=== PATIENT | male | born 1960 | race American Indian/Alaskan Native ===

== ENCOUNTER 2022-06-03 19:03 | Inpatient (IN) | payer SELFPAY ==
[2022-06-03] MEDS ORDERED: ALTEPLASE 100 MG INJ KIT IV ONE ×2 (20:04)
[2022-06-03] MEDS ORDERED: SODIUM CHLORIDE 0.9% 50 ML IVPB IV ONE (20:04)
--- NOTE | 2022-06-03 20:16 | Consultation ---
History of Present Illness Consult date: 06/03/22 History of present illness: [facility] Consult Note # Demographics Consult Type: Acute Stroke Level 1 (0-4.5 hrs) Patient Location: Emergency Room First Name: Farzad Last Name: Andrei Date of : 1960 Age: 61 Gender: Male Facility: [facility] [place] Time of Initial Page ( Time): 06/03/2022, 19:41 Time of Return Call ( Time): 06/03/2022, 19:42 # HPI Chief Complaint: weakness (focal) Handedness: Right History: Per ER staff, patient with right-sided weakness starting at 5:30pm. Last Known Normal: I have collected independent history specific to time last normal or last known well. We have collaborated with the provider and at this time, we have the most current timeline with the information that is available. 5:30pm Duration: constant hours Possible Thrombolytic candidate: not on warfarin or NOACs no intracranial hemorrhage history no recent major surgery Associated Symptoms: no headache # Scores Time of exam and NIHSS (): 06/03/2022, 19:52 Level of Consciousness 1a: [0] = Alert; keenly responsive LOC Questions 1b: [0] = Answers both questions correctly LOC Commands 1c: [0] = Performs both tasks correctly Best Gaze 2: [0] = Normal Visual 3: [0] = No visual loss Facial Palsy 4: [0] = Normal symmetrical movements Motor Arm Left 5a: [0] = No drift Motor Arm Right 5b: [0] = No drift Motor Leg Left 6a: [0] = No drift Motor Leg Right 6b: [0] = No drift Limb Ataxia 7: [0] = Absent Sensory 8: [0] = Normal Best Language 9: [0] = No aphasia Dysarthria 10: [0] = Normal Extinction and Inattention 11: [0] = No abnormality NIHSS Total: 0 # Exam SBP: 229 DBP: 132 Mental Status: awake alert and oriented x 3 follows commands Language: normal speech Motor: Distal right hand weakness - cannot make fist # ROS Pulmonary: no shortness of breath Cardiovascular: no chest pain # PMH-FH-SH Past Medical History: stroke Social History: non-smoker Medications: denies Allergies: NKDA # Data Glucose: [address] personally read by me ( Time): 06/03/2022, 19:[address]: no bleed preliminarily reviewed by me, please refer to radiology read for official reading # Assessment Impression: Ischemic Stroke (Acute) # Plan Thrombolytic/Intervention: IV thrombolytic and possible IA candidate Thrombolytic Dosing: IV alteplase 0.9 mg/kg, max dose 90 mg; 10% of dose given over 1 minute IVP, remaining 90% given as infusion over 1 hour Possible IA Candidate: CTA pending Time IV Thrombolytic Recommended ( Time): 06/03/2022, 20:03 Labs: CBC comprehensive metabolic panel ESR hemoglobin A1c lipid panel troponin TSH urine drug screen ua Imaging: (urgency: STAT): CT Angiogram Head and CT Angiogram Neck AND call back with results if abnormal Imaging: (urgency: routine): MRI Brain without contrast Diagnostic Test: echo without bubble study Therapy/Evaluation: NPO until swallow evaluation PT/OT evaluation Medication: aspirin 81 mg daily start statin with goal of LDL < 70 DVT Prophylaxis: SCD chemical DVT prophylaxis Thrombolytic Administration Recommendations: I reviewed the risks/benefits/alternatives of IV thrombolytic therapy with the patient. They understand there is potential of life threatening hemorrhage from IV thrombolysis. I stated that I believe benefits outweighs risk. They wish to proceed with IV thrombolytic therapy. I have collected independent history specific to time last normal or last known well. We have collaborated with the ED provider and at this time, we have the most current timeline with the information that is available. BP goal< 180/105 for 24hrs post Thrombolytic administration Use Labetolol 10-20mg IV prn or Nicardipine gtt to maintain BP parameters No antiplatelets or anticoagulants for next 24 hrs unless indicated for emergent IA procedure or other life threatening situation symptoms deemed to be disabling, despite low NIHSS Given the current persistent symptoms & reported lack of exclusion conditions, the risks & benefits of thrombolysis were discussed with the patient. Alteplase is FDA-approved for treating acute ischemic strokes & patients generally do better with treatment than without. Distal right hand weakness Other: If patient has any neurological deterioration please call me back immediately telemetry monitoring I have discussed my recommendations with the referring provider Disposition: admit # Demographics First Name: Farzad Last Name: Andrei Facility: [facility] [place] Medications and Allergies Allergies Allergy/AdvReac Type Severity Reaction Status Date / Time No Known Allergies Allergy Unverified 06/03/22 19:30 Physical Examination - Vital Signs Vital Signs: Vital Signs Temp Pulse Resp BP Pulse Ox 99.1 F 82 18 229/132 100 06/03/22 19:23 06/03/22 19:23 06/03/22 19:23 06/03/22 19:23 06/03/22 19:23
--- NOTE | 2022-06-03 20:18 | Cat Scan Report ---
CT BRAIN: 06/03/2022 INDICATION / CLINICAL INFORMATION: Right arm numbness. COMPARISON: None available. FINDINGS: BRAIN/INTRACRANIAL STRUCTURES: Unenhanced CT images of the brain were obtained. No previous studies a re available here for comparison. There is no definite evidence of acute abnormality. Extensive chronic white matter hypoattenuation is present throughout the cerebral hemispheric white matter and cerebellum, consistent with chronic sma ll vessel ischemic change and lacunar infarcts. There is a more focal area of right parietal cortical and subcortical encephalomalacia, consistent with remote cortical ischemic injury. There is no evidence of hemorrhage or mass. There are no abnormal extra-axial fluid collections. Atherosclerotic vascular calcifications are present in the distal internal carotid arteries and verte bral arteries. EXTRACRANIAL STRUCTURES: Unremarkable. IMPRESSION: No acute abnormality. Extensive chronic changes as described above. All CT scans at this location are performed using dose reduction to ALARA by means of automated expos ure control. Signer Name: Kalpesh Li MD Signed: 06/03/2022 8:14 PM Workstation Name: [id number]
--- NOTE | 2022-06-03 20:21 | Emergency Department Report ---
HPI - General Chief Complaint: High BP Time Seen by Provider: 06/03/22 19:47 - HPI HPI: Room 1 The patient is a 61-year-old male present with a chief complaint of right-sided numbness. The patient states he was in his usual state of health at [address] when he suddenly came disoriented. Patient states he then developed numbness in his right upper extremity and weakness in his right director gift. Patient states he was unable to clench his fist and the symptoms have been persistent. Patient denies any other weakness or paresthesias. Patient denies dysarthria or dysphagia. ED Past Medical Hx - Past Medical History Hx Hypertension: Yes - Surgical History Past Surgical History?: No - Family History Family history: no significant - Social History Smoking Status: Never Smoker Substance Use Type: None ED Review of Systems ROS: Stated complaint: STROKE Other details as noted in HPI Constitutional: no symptoms reported Eyes: denies: eye pain ENT: denies: throat pain Respiratory: no symptoms reported Cardiovascular: denies: chest pain Endocrine: no symptoms reported Gastrointestinal: denies: abdominal pain Genitourinary: denies: dysuria Musculoskeletal: denies: back pain Neurological: weakness, paresthesias Physical Exam - Physical Exam Vital Signs: Vital Signs 06/03/22 19:23 Temperature 99.1 F Pulse Rate 82 Respiratory 18 Rate Blood Pressure 229/132 [Right] O2 Sat by Pulse 100 Oximetry Physical Exam: GENERAL: The patient is well-developed well-nourished male lying on stretcher not appearing to be in acute distress. [] HEENT: Normocephalic. Atraumatic. Extraocular motions are intact. Patient has moist mucous membranes. NECK: Supple. Trachea midline CHEST/LUNGS: Clear to auscultation. There is no respiratory distress noted. HEART/CARDIOVASCULAR: Regular. There is no tachycardia. There is no gallop rub or murmur. ABDOMEN: Abdomen is soft, nontender. Patient has normal bowel sounds. There is no abdominal distention. SKIN: There is no rash. There is no edema. There is no diaphoresis. NEURO: The patient is awake, alert, and oriented. The patient is cooperative. Cranial nerves II through XII grossly intact. 0+/5 director gift on the right, 5+/5 director gift on the left. Patient is able to hold either upper extremity at 45 degree angle for 10-second count without drift. Patient is able to hold either lower extremity at 30 degree angle for 5-second count without drift. Normal sensation to light touch bilaterally. The patient has normal speech. GCS 15. NIHSS=1 MUSCULOSKELETAL: There is no evidence of acute injury. ED Course Vital Signs 06/03/22 19:23 Temperature 99.1 F Pulse Rate 82 Respiratory 18 Rate Blood Pressure 229/132 [Right] O2 Sat by Pulse 100 Oximetry - Consultations Consultation #1: 06/03/22 20:06 Case discussed with [id number] recommend tPA 06/03/22 21:47 Tele-neurologist paged 06/03/22 21:53 CTA results discussed with neurologist-not amenable to intervention. Continue with plan to admit patient for further stroke work-up ED Medical Decision Making - Lab Data Result diagrams: 06/03/22 20:35 Laboratory Tests 06/03/22 06/03/22 06/03/22 20:35 20:35 Unknown WBC 5.4 RBC 4.40 Hgb 13.1 Hct 38.6 MCV 88 MCH 30 MCHC 34 RDW 13.9 Plt Count 158 Lymph % (Auto) 9.1 L [place] % (Auto) 4.4 Eos % (Auto) 2.6 Baso % (Auto) 2.4 H Lymph # (Auto) 0.5 L [place] # (Auto) 0.2 Eos # (Auto) 0.1 Baso # (Auto) 0.1 Seg Neutrophils % 81.5 H Seg Neutrophils # 4.4 PT 13.7 INR 0.95 APTT 32.0 Thrombin Time 17.7 Urine Color Straw Urine Turbidity Clear Specific [place] (Man) 1.010 Ur Protein (Man) Negative Ur Ketones (Man) Negative Ur Nitrite (Man) Negative Urine Bilirubin (Man) Negative Leukocyte Esterase (Man) Negative Urine WBC (Auto) < 1.0 Urine RBC (Auto) < 1.0 U Epithel Cells (Auto) < 1.0 Urine RBC (Manual) Negative - Radiology Data Radiology results: report reviewed (CT head, CTA brain, CTA neck), image reviewed (CT head, CTA brain, CTA neck) [facility] [address] [place] [address] Cat Scan Report Signed Patient: ROBERT RUSSELL MR#: [id number] 1 : 1960 Acct:[id number] Age/Sex: 61 / M ADM Date: 06/03/22 Loc: ED Attending Dr: Ordering Physician: DEVANTE SUTHERLAND MD Date of Service: 06/03/22 Procedure(s): CT head/brain wo con Accession Number(s): [id number] cc: DEVANTE SUTHERLAND MD CT BRAIN: 06/03/2022 INDICATION / CLINICAL INFORMATION: Right arm numbness. COMPARISON: None available. FINDINGS: BRAIN/INTRACRANIAL STRUCTURES: Unenhanced CT images of the brain were obtained. No previous studies are available here for comparison. There is no definite evidence of acute abnormality. Extensive chronic white matter hypoattenuation is present throughout the cerebral hemispheric white matter and cerebellum, consistent with chronic small vessel ischemic change and lacunar infarcts. There is a more focal area of right parietal cortical and subcortical encephalomalacia, consistent with remote cortical ischemic injury. There is no evidence of hemorrhage or mass. There are no abnormal extra-axial fluid collections. Atherosclerotic vascular calcifications are present in the distal internal carotid arteries and vertebral arteries. EXTRACRANIAL STRUCTURES: Unremarkable. IMPRESSION: No acute abnormality. Extensive chronic changes as described above. All CT scans at this location are performed using dose reduction to ALARA by means of automated exposure control. Signer Name: Kalpesh Li MD Signed: 06/03/2022 8:14 PM Workstation Name: [id number] Transcribed By: AO Dictated By: Kalpesh Li MD Electronically Authenticated By: Kalpesh Li MD Signed Date/Time: 06/03/222013 DD/ 07 TD/TT: [facility] [address] [place] [address] Cat Scan Report Signed Patient: ROBERT RUSSELL MR#: [id number] 1 : 1960 Acct:[id number] Age/Sex: 61 / M ADM Date: 06/03/22 Loc: ED Attending Dr: Ordering Physician: DEVANTE SUTHERLAND MD Date of Service: 06/03/22 Procedure(s): CT angio neck Accession Number(s): [id number] cc: DEVANTE SUTHERLAND MD CTA NECK WITH CONTRAST 06/03/2022 INDICATION / CLINICAL INFORMATION: Right upper extremity numbness 100ml of [id number]. COMPARISON: None. TECHNIQUE: Routine CTA of the neck is performed. 3-D/MIP reformats were postprocessed. Percentage stenosis is determined by direct quantitative measurements of diseased internal carotid artery diameter compared with normal distal internal carotid artery reference segments or by criteria similar to NASCET where applicable. All CT scans at this location are performed using CT dose reduction for ALARA by means of automated exposure control. CONTRAST: 100 ml of Omnipaque 350 FINDINGS: Carotid bifurcations: No evidence of carotid bifurcation stenosis Carotid arteries: No significant abnormality. Cervical vertebral arteries: No significant abnormality. Aortic arch: No significant abnormality. None. IMPRESSION: No significant abnormality. Signer Name: Kalpesh Li MD Signed: 06/03/2022 8:57 PM Workstation Name: [id number] Transcribed By: AO Dictated By: Kalpesh Li MD Electronically Authenticated By: Kalpesh Li MD Signed Date/Time: 06/03/222056 DD/ 54 TD/TT: [facility] [address] [place] [address] Cat Scan Report Signed Patient: ROBERT RUSSELL MR#: [id number] 1 : 1960 Acct:[id number] Age/Sex: 61 / M ADM Date: 06/03/22 Loc: ED Attending Dr: Ordering Physician: DEVANTE SUTHERLAND MD Date of Service: 06/03/22 Procedure(s): CT angio head Accession Number(s): [id number] cc: DEVANTE SUTHERLAND MD CTA HEAD WITH CONTRAST 06/03/2022 HISTORY: Right upper extremity numbness 100ml of [id number]. COMPARISON: None. TECHNIQUE: All CT scans at this location are performed using CT dose reduction for ALARA by means of automated exposure control.. 3-D/MIP reformats postprocessed. Percentage stenosis is determined by direct quantitative measurements of diseased internal carotid artery diameter compared with normal distal internal carotid artery reference segments or by criteria similar to NASCET where applicable. CONTRAST: 100 ml of Omnipaque 350 FINDINGS: CTA HEAD: Intracranial vertebral arteries: Prominent atherosclerotic change in the distal right vertebral artery, which may be highly stenotic or completely occluded just above the skull base, with retrograde flow from the vertebrobasilar junction. 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 Reconstitution distally, with Basilar artery: As above Posterior cerebral arteries: Moderate atherosclerotic irregularity without occlusion. Intracranial internal carotid arteries: No significant abnormality. Anterior cerebral arteries: Moderate atherosclerotic irregularity without occlusion. Middle cerebral arteries: Moderate atherosclerotic irregularity without occlusion. Dural venous sinuses:Not optimally opacified. No significant abnormality. Additional findings: None. IMPRESSION: 1. Intracranial atherosclerotic changes as detailed above. Signer Name: Kalpesh Li MD Signed: 06/03/2022 9:10 PM Workstation Name: [id number] Transcribed By: AO Dictated By: Kalpesh Li MD Electronically Authenticated By: Kalpesh Li MD Signed Date/Time: 06/03/222109 DD/ 56 TD/TT: - Differential Diagnosis CVA Critical care attestation.: If time is entered above; I have spent that time in minutes in the direct care of this critically ill patient, excluding procedure time. ED Disposition Clinical Impression: CVA (cerebral vascular accident) Disposition: ADMITTED INPATIENT Is pt being admited?: Yes Does the pt Need Aspirin: No Condition: Serious Time of Disposition: 22:10 (Care transferred to hospitalist (Dr. Payne))
[2022-06-03 20:58] LABS: Basophils # (Auto) 0.1 K/mm3 (0.0-0.1); Basophils % (Auto) 2.4 % (0.0-1.8); Eosinophils # (Auto) 0.1 K/mm3 (0.0-0.4); Eosinophils % (Auto) 2.6 % (0.0-4.3); Hematocrit 38.6 % (35.5-45.6); Hemoglobin 13.1 gm/dl (11.8-15.2); Lymphocytes # (Auto) 0.5 K/mm3 (1.2-5.4); Lymphocytes % (Auto) 9.1 % (13.4-35.0); Mean Corpuscular HGB Conc 34 % (32-34); Mean Corpuscular Volume 88 fl (84-94); Monocytes # (Auto) 0.2 K/mm3 (0.0-0.8); Monocytes % (Auto) 4.4 % (0.0-7.3); Platelet Count 158 K/mm3 (140-440); Red Cell Distribution Width 13.9 % (13.2-15.2)
--- NOTE | 2022-06-03 21:02 | Cat Scan Report ---
CTA NECK WITH CONTRAST 06/03/2022 INDICATION / CLINICAL INFORMATION: Right upper extremity numbness 100ml of [id number]. COMPARISON: None. TECHNIQUE: Routine CTA of the neck is performed. 3-D/MIP reformats were postprocessed. Percentage st enosis is determined by direct quantitative measurements of diseased internal carotid artery diameter compared with normal distal internal carotid artery reference segments or by criteria similar to CET where applicable. All CT scans at this location are performed using CT dose reduction for ALARA b y means of automated exposure control. CONTRAST: 100 ml of Omnipaque 350 FINDINGS: Carotid bifurcations: No evidence of carotid bifurcation stenosis Carotid arteries: No significant abnormality. Cervical vertebral arteries: No significant abnormality. Aortic arch: No significant abnormality. None. IMPRESSION: No significant abnormality. Signer Name: Kalpesh Li MD Signed: 06/03/2022 8:57 PM Workstation Name: [id number]
[2022-06-03 21:07] LABS: INR 0.95 (0.87-1.13)
[2022-06-03 21:08] LABS: Thrombin Time 17.7 Sec. (15.1-19.6)
[2022-06-03 21:08] LABS: Color,Urine Straw (Yellow); RBC,Urine < 1.0 /HPF (0.0-6.0); WBC,Urine < 1.0 /HPF (0.0-6.0)
[2022-06-03] MEDS ORDERED: niCARdipine DRIP 40 MG/200 ML BAG ONE (21:13)
[2022-06-03] MEDS ORDERED: hydrALAZINE 20 MG/1 ML INJ ONE (21:14)
--- NOTE | 2022-06-03 21:15 | Cat Scan Report ---
CTA HEAD WITH CONTRAST 06/03/2022 HISTORY: Right upper extremity numbness 100ml of [id number]. COMPARISON: None. TECHNIQUE: All CT scans at this location are performed using CT dose reduction for ALARA by means of automated exposure control.. 3-D/MIP reformats postprocessed. Percentage stenosis is determined by d irect quantitative measurements of diseased internal carotid artery diameter compared with normal dis mauricio internal carotid artery reference segments or by criteria similar to NASCET where applicable. CONTRAST: 100 ml of Omnipaque 350 FINDINGS: CTA HEAD: Intracranial vertebral arteries: Prominent atherosclerotic change in the distal right vertebral arter y, which may be highly stenotic or completely occluded just above the skull base, with retrograde jacque w from the vertebrobasilar junction. The basilar artery itself is probably atherosclerotic and appear s to be occluded in its mid point, from [place] of [place] collaterals. Reconstitution distally, with Basilar artery: As above Posterior cerebral arteries: Moderate atherosclerotic irregularity without occlusion. Intracranial internal carotid arteries: No significant abnormality. Anterior cerebral arteries: Moderate atherosclerotic irregularity without occlusion. Middle cerebral arteries: Moderate atherosclerotic irregularity without occlusion. Dural venous sinuses:Not optimally opacified. No significant abnormality. Additional findings: None. IMPRESSION: 1. Intracranial atherosclerotic changes as detailed above. Signer Name: Kalpesh Li MD Signed: 06/03/2022 9:10 PM Workstation Name: [employer] [id number]
[2022-06-03] MEDS ORDERED: hydrALAZINE 20 MG/1 ML INJ IV ONE (21:22)
[2022-06-03] MEDS ORDERED: niCARdipine DRIP 40 MG/200 ML BAG IV ONE (21:42)
[2022-06-03] MEDS ORDERED: niCARdipine 50 MG in SODIUM CHLORIDE 0.9% 250ML 230 ML IV SCH (22:00)
[2022-06-03 22:25] LABS: BUN/Creatinine Ratio 11; Blood Urea Nitrogen 16 mg/dL (9-20); Calcium 8.8 mg/dL (8.4-10.2); Hemolysis Index 41
[2022-06-03] MEDS ORDERED: SODIUM CHLORIDE 0.9% 1000 ML 1,000 ML IV SCH (23:45)
[2022-06-03] MEDS ORDERED: ONDANSETRON 4 MG/2 ML INJ IV PRN (23:57)
[2022-06-03] MEDS ORDERED: MORPHINE 2 MG/1 ML INJ IV PRN (23:57)
[2022-06-03] MEDS ORDERED: ACETAMINOPHEN 325 MG TAB PO PRN (23:57)
[2022-06-03] MEDS ORDERED: MORPHINE 4 MG/1 ML INJ IV PRN (23:57)
[2022-06-03] MEDS ORDERED: ALBUTEROL 2.5 MG/3 ML NEBU IH PRN (23:57)
--- NOTE | 2022-06-04 00:07 | History and Physical Report ---
History of Present Illness Date of examination: 06/04/22 Date of admission: 06/04/22 Chief complaint: High blood pressure Right upper extremity weakness numbness History of present illness: 61-year-old male with history of hypertension was brought to the hospital be cause of right-sided numbness. The patient states he was in his usual state of health at 1730 watching television when he suddenly came disoriented. Patient states he then developed numbness in his right upper extremity and weakness in his right development scientist. Patient states he was unable to clench his fist and the symptoms have been persistent. Patient denies any other weakness or paresthesias. Patient denies dysarthria or dysphagia. Initial CT scan of the head shows no acute intracranial abnormality. Subsequently Case was discussed with on-call telemetry neurologist who recommends tPA. We are going to admit the patient we will put the patient on CVA pathway will consult neurology as well as critical care for evaluation Past History Past Medical History: hypertension Past Surgical History: No surgical history Social history: no significant social history Family history: hypertension Medications and Allergies Allergies Allergy/AdvReac Type Severity Reaction Status Date / Time No Known Allergies Allergy Unverified 06/03/22 19:30 Active Meds: Active Medications Nicardipine HCl 50 mg/ Sodium (Chloride) 250 mls @ 25 mls/hr IV TITR OWEN; Protocol Nicardipine/Sodium Chloride (Cardene Drip 40 Mg/200 Ml) 40 mg in 200 mls @ 25 mls/hr IV ONCE ONE; Protocol Stop: 06/04/22 05:41 Last Admin: 06/03/22 22:02 Dose: 5 mg/hr, 25 mls/hr Review of Systems All systems: negative Constitutional: other (numbness in his right upper extremity and weakness in his right development scientist. ) Exam - Constitutional Vitals: Temp Pulse Resp BP Pulse Ox 99.1 F 91 H 16 174/102 99 06/03/22 19:23 06/03/22 23:50 06/03/22 23:50 06/03/22 23:50 06/03/22 23:50 General appearance: Present: no acute distress, well-nourished - EENT Eyes: Present: PERRL ENT: hearing intact, clear oral mucosa - Neck Neck: Present: supple, normal ROM - Respiratory Respiratory effort: normal Respiratory: bilateral: CTA - Cardiovascular Heart Sounds: Present: S1 & S2. Absent: rub, click - Extremities Extremities: pulses symmetrical, No edema Peripheral Pulses: within normal limits - Abdominal General gastrointestinal: Present: soft, non-tender, non-distended, normal bowel sounds Male genitourinary: Present: normal - Integumentary Integumentary: Present: clear, warm, dry - Musculoskeletal Musculoskeletal: gait normal, strength equal bilaterally - Psychiatric Psychiatric: appropriate mood/affect, intact judgment & insight - Neurologic Neurologic: CNII-XII intact, moves all extremities, other (numbness in his right upper extremity and weakness in his right development scientist. ) HEART Score - HEART Score Troponin: Troponin T < 0.010 ng/mL (0.00-0.029) 06/03/22 20:35 Results - Labs CBC & Chem 7: 06/03/22 20:35 06/03/22 20:35 Labs: Laboratory Last Values WBC 5.4 K/mm3 (4.5-11.0) 06/03/22 20:35 RBC 4.40 M/mm3 (3.65-5.03) 06/03/22 20:35 Hgb 13.1 gm/dl (11.8-15.2) 06/03/22 20:35 Hct 38.6 % (35.5-45.6) 06/03/22 20:35 MCV 88 fl (84-94) 06/03/22 20:35 MCH 30 pg (28-32) 06/03/22 20:35 MCHC 34 % (32-34) 06/03/22 20:35 RDW 13.9 % (13.2-15.2) 06/03/22 20:35 Plt Count 158 K/mm3 (140-440) 06/03/22 20:35 Lymph % (Auto) 9.1 % (13.4-35.0) L 06/03/22 20:35 Cassia % (Auto) 4.4 % (0.0-7.3) 06/03/22 20:35 Eos % (Auto) 2.6 % (0.0-4.3) 06/03/22 20:35 Baso % (Auto) 2.4 % (0.0-1.8) H 06/03/22 20:35 Lymph # (Auto) 0.5 K/mm3 (1.2-5.4) L 06/03/22 20:35 Cassia # (Auto) 0.2 K/mm3 (0.0-0.8) 06/03/22 20:35 Eos # (Auto) 0.1 K/mm3 (0.0-0.4) 06/03/22 20:35 Baso # (Auto) 0.1 K/mm3 (0.0-0.1) 06/03/22 20:35 Seg Neutrophils % 81.5 % (40.0-70.0) H 06/03/22 20:35 Seg Neutrophils # 4.4 K/mm3 (1.8-7.7) 06/03/22 20:35 PT 13.7 Sec. (12.2-14.9) 06/03/22 20:35 INR 0.95 (0.87-1.13) 06/03/22 20:35 APTT 32.0 Sec. (24.2-36.6) 06/03/22 20:35 Thrombin Time 17.7 Sec. (15.1-19.6) 06/03/22 20:35 Sodium 136 mmol/L (137-145) L 06/03/22 20:35 Potassium 3.3 mmol/L (3.6-5.0) L 06/03/22 20:35 Chloride 97.1 mmol/L (98-107) L 06/03/22 20:35 Carbon Dioxide 27 mmol/L (22-30) 06/03/22 20:35 Anion Gap 15 mmol/L 06/03/22 20:35 BUN 16 mg/dL (9-20) 06/03/22 20:35 Creatinine 1.5 mg/dL (0.8-1.3) H 06/03/22 20:35 Estimated GFR 58 ml/min 06/03/22 20:35 BUN/Creatinine Ratio 11 % 06/03/22 20:35 Glucose 111 mg/dL (75-100) H 06/03/22 20:35 Calcium 8.8 mg/dL (8.4-10.2) 06/03/22 20:35 Troponin T < 0.010 ng/mL (0.00-0.029) 06/03/22 20:35 Urine Color Straw (Yellow) 06/03/22 Unknown Urine Turbidity Clear (Clear) 06/03/22 Unknown Specific [place] (Man) 1.010 (1.003-1.030) 06/03/22 Unknown Ur Protein (Man) Negative mg/dL (Negative) 06/03/22 Unknown Ur Ketones (Man) Negative (Negative) 06/03/22 Unknown Ur Nitrite (Man) Negative (Negative) 06/03/22 Unknown Urine Bilirubin (Man) Negative (Negative) 06/03/22 Unknown Leukocyte Esterase (Man) Negative (Negative) 06/03/22 Unknown Urine WBC (Auto) < 1.0 /HPF (0.0-6.0) 06/03/22 Unknown Urine RBC (Auto) < 1.0 /HPF (0.0-6.0) 06/03/22 Unknown U Epithel Cells (Auto) < 1.0 /HPF (0-13.0) 06/03/22 Unknown Urine RBC (Manual) Negative (Negative) 06/03/22 Unknown - Imaging and Cardiology CT Scan - head: report reviewed Assessment and Plan VTE prophylaxis?: Mechanical Plan of care discussed with patient/family: Yes - Patient Problems (1) CVA (cerebral vascular accident) Current Visit: Yes Status: Acute Plan to address problem: Admit the patient to the ICU overnight. NPO. Normal saline at the rate of 100 cc/h. Patient is a status post tPA. We put the patient on CVA pathway. PT OT speech evaluation. MRI of the brain with and without contrast. Echocardiogram. Neurology evaluation. Critical care evaluation (2) Hypertension Current Visit: Yes Status: Acute Plan to address problem: We put the patient on nicardipine drip. We will monitor the patient closely. We continue the home medication. Echocardiogram (3) Right upper extremity numbness Current Visit: Yes Status: Acute Plan to address problem: NPO. Normal saline at the rate of 100 cc/h. Patient is a status post tPA. We put the patient on CVA pathway. PT OT speech evaluation. MRI of the brain with and without contrast. Echocardiogram. Neurology evaluation. Critical care evaluation (4) DVT prophylaxis Current Visit: Yes Status: Acute Plan to address problem: SCD for DVT prophylaxis because patient is status post tPA. Pepcid 20 mg IV every 12 hours for GI prophylaxis. Patient is a full code
[2022-06-04] MEDS: IPRATROPIUM/ALBUTEROL SULFATE 3 ML AMPUL.NEB IH SCH ×2 (02:40→07:56)
[2022-06-04 04:52] LABS: Basophils % (Auto) 0.1 % (0.0-1.8); Eosinophils % (Auto) 0.4 % (0.0-4.3); Hematocrit 40.1 % (35.5-45.6); Hemoglobin 13.6 gm/dl (11.8-15.2); Lymphocytes # (Auto) 0.9 K/mm3 (1.2-5.4); Mean Corpuscular HGB Conc 34 % (32-34); Mean Corpuscular Volume 88 fl (84-94); Monocytes # (Auto) 0.3 K/mm3 (0.0-0.8); Monocytes % (Auto) 4.6 % (0.0-7.3); Platelet Count 150 K/mm3 (140-440); Red Blood Count 4.56 M/mm3 (3.65-5.03); Red Cell Distribution Width 13.8 % (13.2-15.2)
[2022-06-04 05:17] LABS: BUN/Creatinine Ratio 12; Blood Urea Nitrogen 13 mg/dL (9-20); Calcium 8.9 mg/dL (8.4-10.2); Chol/HDL Ratio 3.65 %; HDL Cholesterol 43 mg/dL (40-59); Hemolysis Index 10; LDL Cholesterol,Direct 107 mg/dL (50-130)
[2022-06-04] MEDS ORDERED: hydroCHLOROthiazide 25 MG TAB PO SCH (10:00)
[2022-06-04] MEDS ORDERED: FAMOTIDINE 20 MG/2 ML INJ IV SCH (10:00)
[2022-06-04] MEDS: POTASSIUM CHLORIDE ER 20 MEQ TAB PO SCH ×2 (10:01→14:40)
[2022-06-04] MEDS: FAMOTIDINE 20 MG TAB PO SCH (10:02)
--- NOTE | 2022-06-04 10:19 | Consultation ---
History of Present Illness Consult date: 06/04/22 Reason for Consult: CVA Chief complaint: Right hand weakness History of present illness: 61 yo right-handed male with htn, ?afib, who presents with a LKNormal time of 17:30 yesterday when he noticed acute onset of right hand weakness along with difficulty getting all his words out. Upon ED arrival, evaluated by tele neurologist and patient was administered IV t-PA. He notes no change in his symptoms. Notes there are times when he feels like his heart is racing. 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 Notes he may have been told that he has atrial fiibrillation. Denies any covid-19 symptoms recently. Past History Past Medical History: hypertension Past Surgical History: No surgical history Social history: no significant social history Family history: hypertension Medications and Allergies Allergies Allergy/AdvReac Type Severity Reaction Status Date / Time No Known Allergies Allergy Unverified 06/03/22 19:30 Home Medications Medication Instructions Recorded Confirmed Last Taken Type No Known Home Medications [No 06/04/22 06/04/22 Unknown History Reported Home Medications] Active Meds: Active Medications Acetaminophen (Acetaminophen 325 Mg Tab) 650 mg PO Q4H PRN PRN Reason: Pain MILD(1-3)/Fever >100.5/[place] Albuterol (Albuterol 2.5 Mg/3 Ml Nebu) 2.5 mg IH Q3HRT PRN PRN Reason: Shortness Of Breath Albuterol/Ipratropium (Ipratropium/Albuterol Sulfate 3 Ml Ampul.Neb) 1 ampul IH Q6HRT [facility] Last Admin: 06/04/22 07:56 Dose: 1 ampul Atorvastatin Calcium (Atorvastatin 40 Mg Tab) 80 mg PO QHS OWEN Famotidine (Famotidine 20 Mg Tab) 20 mg PO QDAY [facility] Last Admin: 06/04/22 10:02 Dose: 20 mg Hydrochlorothiazide (Hydrochlorothiazide 25 Mg Tab) 25 mg PO QDAY [facility] Last Admin: 06/04/22 10:01 Dose: 25 mg Nicardipine HCl 50 mg/ Sodium (Chloride) 250 mls @ 25 mls/hr IV TITR OWEN; Protocol Last Titration: 06/04/22 08:50 Dose: 7.5 mg/hr, 37.5 mls/hr Morphine Sulfate (Morphine 2 Mg/1 Ml Inj) 2 mg IV Q4H PRN PRN Reason: Pain, Moderate (4-6) Morphine Sulfate (Morphine 4 Mg/1 Ml Inj) 4 mg IV Q4H PRN PRN Reason: Pain , Severe (7-10) Ondansetron HCl (Ondansetron 4 Mg/2 Ml Inj) 4 mg IV Q8H PRN PRN Reason: Nausea And Vomiting Potassium Chloride (Potassium Chloride Er 20 Meq Tab) 40 meq PO Q4HR OWEN Stop: 06/04/22 14:01 Last Admin: 06/04/22 10:01 Dose: 40 meq Sodium Chloride (Sodium Chloride 0.9% 10 Ml Flush Syringe) 10 ml IV BID OWEN Last Admin: 06/04/22 10:02 Dose: 10 ml Sodium Chloride (Sodium Chloride 0.9% 10 Ml Flush Syringe) 10 ml IV PRN PRN PRN Reason: LINE FLUSH Review of Systems All systems: negative (as per hpi;) Physical Examination - Vital Signs Vital Signs: Vital Signs Temp Pulse Resp BP Pulse Ox 99.1 F 82 18 229/132 100 06/03/22 19:23 06/03/22 19:23 06/03/22 19:23 06/03/22 19:23 06/03/22 19:23 - Physical Exam Narrative exam: Gen: nad, well-nourished; Head: normocephalic; Eyes: no gaze deviation; no ptosis; ENT: normal vocalization; CVS: warm and well-perfused; Pulm: no respiratory distress; GI: appears non-distended; Ext: no cyanosis appreciated at distal extremities; Skin: no acute rash at distal extremities; Heme: no pathologic ecchymosis appreciated at distal extremities; Neuro: alert, oriented to name, age, month, year, surroundings, no dysarthria, no aphasia, CN 2 - PERRL, visual holt grossly intact, CN 3, 4, 6 - EOMI, CN 5 - facial sensation symmetric to light touch, CN 7 - facial movement symmetric, CN 8 - hearing grossly intact, CN 9, 10 - uvula midline, CN 11 symmetric shoulder movement, CN 12 - tongue midline; Motor - at least 4/5 at all exts; Sensory - light touch symmetric, Cerebellar - fnf /hts intact, Gait - deferred secondary to fall risk; NIHSS (1a.) Level of Consciousness:0 (1b.) LOC Questions:0 (1c.) LOC Commands:0 (2.) Best Gaze:0 (3.) Visual:0 (4.) Facial Palsy:0 (5a.) Motor Arm, Left:0 (5b.) Motor Arm, Right:1 (6a.) Motor Leg, Left:0 (6b.) Motor Leg, Right0: (7.) Limb Ataxia:0 (8.) Sensory:0 (9.) Best Language:1 (10.) Dysarthria:0 (11.) Extinction and Inattention:0 NIHSS Total Score:2 Results - Laboratory Findings CBC and BMP: 06/04/22 04:15 06/04/22 04:15 Abnormal Lab Findings: Abnormal Labs 06/03/22 06/03/22 06/04/22 20:35 20:35 04:15 Lymph % (Auto) 9.1 L 13.0 L Baso % (Auto) 2.4 H Lymph # (Auto) 0.5 L 0.9 L Seg Neutrophils % 81.5 H 81.9 H Sodium 136 L Potassium 3.3 L Chloride 97.1 L Creatinine 1.5 H Glucose 111 H 06/04/22 04:15 Lymph % (Auto) Baso % (Auto) Lymph # (Auto) Seg Neutrophils % Sodium Potassium 3.1 L Chloride Creatinine Glucose 112 H Assessment and Plan 61 yo right-handed male with htn, ?afib, who presents with a LKNormal time of 17:30 yesterday when he noticed acute onset of right hand weakness along with difficulty getting all his words out. Received IV t-PA in the ED. 1. 1. Acute Ischemic Stroke (partial left mca; ?cardioembolic): post t-PA protocol; if [address] reveals no acute ich, initiateASA 325 mg PO qday, MRI Brain w/ wo contrast, TTEcho (if normal, recommend johanna and loop recorder unless hx of paroxysmal afib is verified, confirm LDL/TSH/Covid-19/UDS, telemetry, NIHSS q1 hours per post-tPA protocol; SBP goal 160 to 180 mmHg and DBP 80 to 105 mmHg for now. Statin therapy for a goal LDL of 70, when patient passes swallow evaluation. PT/OT/ST/Swallow evaluation. Long-term risk-factor modification, including a strict diet/exercise regimen for secondary stroke prophylaxis. Stroke education prior to discharge. Followup with Stroke Neurology in 4-6 weeks. 2. Hypertension - goal SBP 160-180 mmHg and DBP 80-105 mmHg for now. 3. Paroxysmal AFib - pt notes possible hx; needs to be verified with his hairspring truer; if verified, long-term anticoagulation for secondary stroke prophylaxis will be needed, if no contraindication(s). 4. Acute Expressive Aphasia - st / swallow evaluation/monitoring. 6. Acute Right Arm / Hand Weakness - pt/ot evaluation/monitoring. Oleksandr Abdalla MD Neurology [id number]
[2022-06-04] MEDS ORDERED: amLODIPine 5 MG TAB PO SCH (11:00)
--- NOTE | 2022-06-04 11:17 | Consultation ---
History of Present Illness - Reason for Consult Consult date: 06/04/22 S/p TPA - History of Present Illness 61 y/o male presented with acute right hand weakness. Deemed to be a candidate for TPA so given yesterday. Transfer to ICU for q1 hour neuro checks. Still with residual right hand weakness. BP remains elevated and required cardene drip. Not on any home meds that we can find. No chest pain, no current shortness of breath. Past History Past Medical History: hypertension Past Surgical History: No surgical history Social history: no significant social history Family history: hypertension Medications and Allergies Allergies Allergy/AdvReac Type Severity Reaction Status Date / Time No Known Allergies Allergy Unverified 06/03/22 19:30 Home Medications Medication Instructions Recorded Confirmed Last Taken Type No Known Home Medications [No 06/04/22 06/04/22 Unknown History Reported Home Medications] Active Meds: Active Medications Acetaminophen (Acetaminophen 325 Mg Tab) 650 mg PO Q4H PRN PRN Reason: Pain MILD(1-3)/Fever >100.5/[place] Albuterol (Albuterol 2.5 Mg/3 Ml Nebu) 2.5 mg IH Q3HRT PRN PRN Reason: Shortness Of Breath Albuterol/Ipratropium (Ipratropium/Albuterol Sulfate 3 Ml Ampul.Neb) 1 ampul IH Q6HRT [facility] Last Admin: 06/04/22 07:56 Dose: 1 ampul Amlodipine Besylate (Amlodipine 5 Mg Tab) 5 mg PO QDAY [facility] Last Admin: 06/04/22 10:38 Dose: 5 mg Atorvastatin Calcium (Atorvastatin 40 Mg Tab) 80 mg PO QHS [facility] Famotidine (Famotidine 20 Mg Tab) 20 mg PO QDAY [facility] Last Admin: 06/04/22 10:02 Dose: 20 mg Hydrochlorothiazide (Hydrochlorothiazide 25 Mg Tab) 25 mg PO QDAY [facility] Last Admin: 06/04/22 10:01 Dose: 25 mg Nicardipine HCl 50 mg/ Sodium (Chloride) 250 mls @ 25 mls/hr IV TITR [facility]; Protocol Last Titration: 06/04/22 10:40 Dose: 5 mg/hr, 25 mls/hr Morphine Sulfate (Morphine 2 Mg/1 Ml Inj) 2 mg IV Q4H PRN PRN Reason: Pain, Moderate (4-6) Morphine Sulfate (Morphine 4 Mg/1 Ml Inj) 4 mg IV Q4H PRN PRN Reason: Pain , Severe (7-10) Ondansetron HCl (Ondansetron 4 Mg/2 Ml Inj) 4 mg IV Q8H PRN PRN Reason: Nausea And Vomiting Potassium Chloride (Potassium Chloride Er 20 Meq Tab) 40 meq PO Q4HR [facility] Stop: 06/04/22 14:01 Last Admin: 06/04/22 10:01 Dose: 40 meq Sodium Chloride (Sodium Chloride 0.9% 10 Ml Flush Syringe) 10 ml IV BID [facility] Last Admin: 06/04/22 10:02 Dose: 10 ml Sodium Chloride (Sodium Chloride 0.9% 10 Ml Flush Syringe) 10 ml IV PRN PRN PRN Reason: LINE FLUSH Review of Systems All systems: negative Exam - Constitutional Vitals: Temp Pulse Resp BP Pulse Ox 98.2 F 90 18 168/105 98 06/04/22 04:00 06/04/22 10:38 06/04/22 09:30 06/04/22 10:38 06/04/22 09:30 General appearance: Present: no acute distress, obese - Neck Neck: Present: supple, normal ROM - Respiratory Respiratory effort: normal Respiratory: bilateral: CTA - Extremities Extremities: no ischemia - Abdominal General gastrointestinal: Present: soft, non-tender Results - Labs CBC & Chem 7: 06/04/22 04:15 06/04/22 04:15 Labs: Abnormal lab results 06/03/22 06/03/22 06/04/22 Range/Units 20:35 20:35 04:15 Lymph % (Auto) 9.1 L 13.0 L (13.4-35.0) % Baso % (Auto) 2.4 H (0.0-1.8) % Lymph # (Auto) 0.5 L 0.9 L (1.2-5.4) K/mm3 Seg Neutrophils % 81.5 H 81.9 H (40.0-70.0) % Sodium 136 L (137-145) mmol/L Potassium 3.3 L (3.6-5.0) mmol/L Chloride 97.1 L (98-107) mmol/L Creatinine 1.5 H (0.8-1.3) mg/dL Glucose 111 H (75-100) mg/dL 06/04/22 Range/Units 04:15 Lymph % (Auto) (13.4-35.0) % Baso % (Auto) (0.0-1.8) % Lymph # (Auto) (1.2-5.4) K/mm3 Seg Neutrophils % (40.0-70.0) % Sodium (137-145) mmol/L Potassium 3.1 L (3.6-5.0) mmol/L Chloride (98-107) mmol/L Creatinine (0.8-1.3) mg/dL Glucose 112 H (75-100) mg/dL - Imaging and Cardiology CT Scan - head: report reviewed Assessment and Plan Continue q1 hour neuro checks BP control, will add PO norvasc, continue HCTZ. Attempt to wean Cardene drip off. MRI Lifestyle changes Follow up Neurology recs.
--- NOTE | 2022-06-04 13:26 | Progress Note ---
Assessment and Plan Assessment and plan: This is a 61-year-old male with HTN and ? IN admitted for acute CVA s/p tPA Neuro: Acute ischemic CVA s/p tPA -Neurology consulted, appreciate recommendations -Initial NIHSS 0 -9/7 NIHSS 2 per neurology -Initial CT head shows no acute abnormality, extensive chronic changes cons istent with small vessel disease and lacunar infarcts -CTA head read as intracranial atherosclerotic changes in the distal right vertebral artery which may be highly stenotic or completely occluded just above the skull base with retrograde flow from the vertebrobasilar junction, basilar artery itself is is probably at atherosclerotic and appears to be occluded in its midpoint from the [place] collaterals, reconstitution distally with basilar arteries. -Per neurology: If 24-hour repeat CT head shows no acute intracranial hemorrhage, initiated 325 aspirin daily -MRI brain with and without contrast pending -TTE with bubble study pending -Neurochecks per protocol -Target SBP 160-180/80-105 -Lipid profile noted -Reorientation as needed -Maintain sleep-wake cycle -aspiration/seizure precautions -As needed analgesia -PT/ST/OT consulted, appreciate recommendations -Hemoglobin A1c pending Cardiac: h/o HTN, ? IN, ? Paroxysmal atrial fibrillation -Blood pressure monitoring per protocol -Nicardipine drip -wean as tolerated -Antihypertensive regimen: Hydrochlorothiazide, Norvasc -Echocardiogram pending Respiratory: NAD -Supplemental oxygen as needed -SPO2 monitor per protocol GI: Obesity -PPI -Passed bedside swallow eval -Cardiac diet -BR: colace : Hypokalemia, acute kidney injury likely secondary to vasomotor nephropathy (resolved) -Monitor intake and output -Renally dose medications -Avoid nephrotoxic medications -Replete potassium -Trend BMP ID: NAD -Monitor WBC and temperature curve Endo: NAD -Avoid hypoglycemia Heme: NAD -Trend CBC -Transfuse hemoglobin less than 7 -SCDs to BLE while in bed The high probability of a clinically significant, sudden or life threatening deterioration of the [neuro/CV] system(s) required my full and direct attention, intervention and personal management. The aggregate critical care time was [60] minutes. This time is in addition to time spent performing reported procedures but includes the following: [x] Data Review and interpretation [x] Patient assessment and monitoring of vital signs [x] Documentation [x] Medication orders and management Disposition Plan: icu Total Time Spent with Patient (Minutes): 60 History Interval history: This is a 61-year-old male with HTN and ? IN who presented to the hospital on 06/03 with complaints of right-sided numbness. 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 In the emergency department patient was noted to have a blood pressure of 229/132 and teleneurology was consulted who deemed the patient a candidate for tPA. Patient is an initial NIHSS per teleneurology was 0. Imaging included CT head which showed no acute hemorrhage. Teleneurology was contacted again as CTA head showed intracranial stenosis predominantly in the posterior circulation and teleneurology stated the areas of stenosis (distal right vertebral artery and mid basilar occlusion with reconstitution distally) does not represent areas of acute endovascular intervention and recommended post thrombolysis and 24- hour CT head to ensure no posttreatment hemorrhage, dual antiplatelet therapy to be considered for 3 months along with high intensity statin and outpatient follow-up with vascular neurology. Patient was admitted to the hospitalist service with consults to neurology and CCM for acute CVA s/p tPA Hospital course to date: 06/04: Patient will have MRI brain, repeat CT head at 2130. Passed bedside swallow evaluation. Nicardipine drip was titrated up but was started on p.o. antihypertensives with a goal of titrating nicardipine drip off. Potassium to be repleted. Patient does have expressive aphasia, right upper extremity pronation and drift with decreased sensation. Patient does complain of [id number] to right upper extremity. Hemoglobin A1c pending. Hospitalist Physical - Constitutional Vitals: Temp Pulse Resp BP Pulse Ox 97.6 F 81 16 170/102 97 06/04/22 12:00 06/04/22 13:00 06/04/22 13:00 06/04/22 13:00 06/04/22 13:00 General appearance: Present: no acute distress, obese - EENT Eyes: Present: PERRL, EOM intact ENT: clear oral mucosa - Neck Neck: Present: normal ROM - Respiratory Respiratory effort: normal Respiratory: bilateral: CTA - Cardiovascular Rhythm: regular Heart Sounds: Present: S1 & S2. Absent: systolic murmur, diastolic murmur - Extremities Extremities: no ischemia, pulses intact, pulses symmetrical, No edema, normal temperature, normal color Peripheral Pulses: within normal limits - Abdominal General gastrointestinal: soft, non-tender, non-distended, normal bowel sounds - Psychiatric Psychiatric: cooperative - Neurologic Neurologic: focal deficits, other (Expressive aphasia, right upper extremity drift and pronation with decreased sensation. Slight right-sided facial droop, strength right upper extremity 2-3/4, right lower extremity 3/4) - Allied Health Allied health notes reviewed: nursing, social work HEART Score - HEART Score Troponin: Troponin T < 0.010 ng/mL (0.00-0.029) 06/03/22 20:35 Results - Labs CBC & Chem 7: 06/04/22 04:15 06/04/22 04:15 Labs: Laboratory Last Values WBC 6.7 K/mm3 (4.5-11.0) 06/04/22 04:15 RBC 4.56 M/mm3 (3.65-5.03) 06/04/22 04:15 Hgb 13.6 gm/dl (11.8-15.2) 06/04/22 04:15 Hct 40.1 % (35.5-45.6) 06/04/22 04:15 MCV 88 fl (84-94) 06/04/22 04:15 MCH 30 pg (28-32) 06/04/22 04:15 MCHC 34 % (32-34) 06/04/22 04:15 RDW 13.8 % (13.2-15.2) 06/04/22 04:15 Plt Count 150 K/mm3 (140-440) 06/04/22 04:15 Lymph % (Auto) 13.0 % (13.4-35.0) L 06/04/22 04:15 [place] % (Auto) 4.6 % (0.0-7.3) 06/04/22 04:15 Eos % (Auto) 0.4 % (0.0-4.3) 06/04/22 04:15 Baso % (Auto) 0.1 % (0.0-1.8) 06/04/22 04:15 Lymph # (Auto) 0.9 K/mm3 (1.2-5.4) L 06/04/22 04:15 [place] # (Auto) 0.3 K/mm3 (0.0-0.8) 06/04/22 04:15 Eos # (Auto) 0.0 K/mm3 (0.0-0.4) 06/04/22 04:15 Baso # (Auto) 0.0 K/mm3 (0.0-0.1) 06/04/22 04:15 Seg Neutrophils % 81.9 % (40.0-70.0) H 06/04/22 04:15 Seg Neutrophils # 5.5 K/mm3 (1.8-7.7) 06/04/22 04:15 PT 13.7 Sec. (12.2-14.9) 06/03/22 20:35 INR 0.95 (0.87-1.13) 06/03/22 20:35 APTT 32.0 Sec. (24.2-36.6) 06/03/22 20:35 Thrombin Time 17.7 Sec. (15.1-19.6) 06/03/22 20:35 Sodium 139 mmol/L (137-145) 06/04/22 04:15 Potassium 3.1 mmol/L (3.6-5.0) L 06/04/22 04:15 Chloride 101.7 mmol/L (98-107) 06/04/22 04:15 Carbon Dioxide 27 mmol/L (22-30) 06/04/22 04:15 Anion Gap 13 mmol/L 06/04/22 04:15 BUN 13 mg/dL (9-20) 06/04/22 04:15 Creatinine 1.1 mg/dL (0.8-1.3) 06/04/22 04:15 Estimated GFR > 60 ml/min 06/04/22 04:15 BUN/Creatinine Ratio 12 % 06/04/22 04:15 Glucose 112 mg/dL (75-100) H 06/04/22 04:15 Calcium 8.9 mg/dL (8.4-10.2) 06/04/22 04:15 Troponin T < 0.010 ng/mL (0.00-0.029) 06/03/22 20:35 Triglycerides 64 mg/dL (2-149) 06/04/22 04:15 Cholesterol 157 mg/dL (50-199) 06/04/22 04:15 LDL Cholesterol Direct 107 mg/dL (50-130) 06/04/22 04:15 HDL Cholesterol 43 mg/dL (40-59) 06/04/22 04:15 Cholesterol/HDL Ratio 3.65 % 06/04/22 04:15 Urine Color Straw (Yellow) 06/03/22 Unknown Urine Turbidity Clear (Clear) 06/03/22 Unknown Specific [place] (Man) 1.010 (1.003-1.030) 06/03/22 Unknown Ur Protein (Man) Negative mg/dL (Negative) 06/03/22 Unknown Ur Ketones (Man) Negative (Negative) 06/03/22 Unknown Ur Nitrite (Man) Negative (Negative) 06/03/22 Unknown Urine Bilirubin (Man) Negative (Negative) 06/03/22 Unknown Leukocyte Esterase (Man) Negative (Negative) 06/03/22 Unknown Urine WBC (Auto) < 1.0 /HPF (0.0-6.0) 06/03/22 Unknown Urine RBC (Auto) < 1.0 /HPF (0.0-6.0) 06/03/22 Unknown U Epithel Cells (Auto) < 1.0 /HPF (0-13.0) 06/03/22 Unknown Urine RBC (Manual) Negative (Negative) 06/03/22 Unknown Active Medications - Current Medications Current Medications: Generic Name Dose Route Start Last Admin Trade Name Freq PRN Reason Stop Dose Admin Acetaminophen 650 mg 06/03/22 23:57 Acetaminophen 325 Mg Tab PO Q4H PRN Pain MILD(1-3)/Fever >100.5/[place]FF[place] Albuterol 2.5 mg 06/03/22 23:57 Albuterol 2.5 Mg/3 Ml Nebu IH Q3HRT PRN Shortness Of Breath Albuterol/Ipratropium 1 ampul 06/04/22 02:00 06/04/22 07:56 Ipratropium/Albuterol Sulfate 3 Ml Ampul.Neb IH 1 ampul Q6HRT OWEN Administration Amlodipine Besylate 5 mg 06/04/22 11:00 06/04/22 10:38 Amlodipine 5 Mg Tab PO 5 mg QDAY OWEN Administration Atorvastatin Calcium 80 mg 06/04/22 22:00 Atorvastatin 40 Mg Tab PO QHS OWEN Docusate Sodium 100 mg 06/04/22 22:00 Docusate Sodium 100 Mg Cap PO BID ON LICENSE OF [facility] Famotidine 20 mg 06/04/22 10:00 06/04/22 10:02 Famotidine 20 Mg Tab PO 20 mg QDAY OWEN Administration Hydrochlorothiazide 25 mg 06/04/22 10:00 06/04/22 10:01 Hydrochlorothiazide 25 Mg Tab PO 25 mg QDAY OWEN Administration Nicardipine HCl 50 mg/ Sodium 250 mls @ 25 mls/hr 06/03/22 22:00 06/04/22 12:00 Chloride IV 0 mg/hr TITR OWEN 0 mls/hr Titration Protocol 5 MG/HR Morphine Sulfate 2 mg 06/03/22 23:57 Morphine 2 Mg/1 Ml Inj IV Q4H PRN Pain, Moderate (4-6) Morphine Sulfate 4 mg 06/03/22 23:57 Morphine 4 Mg/1 Ml Inj IV Q4H PRN Pain , Severe (7-10) Ondansetron HCl 4 mg 06/03/22 23:57 Ondansetron 4 Mg/2 Ml Inj IV Q8H PRN Nausea And Vomiting Potassium Chloride 40 meq 06/04/22 10:00 06/04/22 10:01 Potassium Chloride Er 20 Meq Tab PO 06/04/22 14:01 40 meq Q4HR OWEN Administration Sodium Chloride 10 ml 06/04/22 10:00 06/04/22 10:02 Sodium Chloride 0.9% 10 Ml Flush Syringe IV 10 ml BID OWEN Administration Sodium Chloride 10 ml 06/03/22 23:57 Sodium Chloride 0.9% 10 Ml Flush Syringe IV PRN PRN LINE FLUSH
[2022-06-04] MEDS: DOCUSATE SODIUM 100 MG CAP PO SCH ×2 (14:40→22:09)
[2022-06-04] MEDS ORDERED: hydrALAZINE 10 MG TAB PO PRN (17:30)
--- NOTE | 2022-06-04 22:20 | Cat Scan Report ---
CT HEAD WITHOUT CONTRAST INDICATION / CLINICAL INFORMATION: 24 hours post TPA, 2130 06/04/2022. TECHNIQUE: All CT scans at this location are performed using CT dose reduction for ALARA by means of automated exposure control. COMPARISON: 06/03/2022 FINDINGS: No significant interval change. No intracranial hemorrhage is seen. Extensive chronic white matter ch anges again noted. Chronic small vessel ischemic changes noted. There are small lacunar infarcts. Rig ht parietal cortical and subcortical encephalomalacia consistent with remote infarct is again noted. ADDITIONAL FINDINGS: None. IMPRESSION: 1. No significant change. No intracranial hemorrhage is seen. Signer Name: Pop Hollins MD Signed: 06/04/2022 10:15 PM Workstation Name: [id number]
[2022-06-05 04:39] LABS: Hematocrit 41.4 % (35.5-45.6); Hemoglobin 13.5 gm/dl (11.8-15.2); Mean Corpuscular HGB Conc 33 % (32-34); Mean Corpuscular Volume 89 fl (84-94); Platelet Count 165 K/mm3 (140-440); Red Blood Count 4.66 M/mm3 (3.65-5.03); Red Cell Distribution Width 13.8 % (13.2-15.2)
[2022-06-05 05:00] LABS: Calcium 8.5 mg/dL (8.4-10.2)
[2022-06-05] MEDS ORDERED: POTASSIUM CHLORIDE ER 20 MEQ TAB PO SCH (07:00)
[2022-06-05] MEDS ORDERED: MAGNESIUM SULFATE 2 GM/50 ML BAG IV SCH (07:00)
[2022-06-05] MEDS ORDERED: LACTATED RINGERS 1,000 ML IV ONE (08:30)
[2022-06-05] MEDS: DOCUSATE SODIUM 100 MG CAP PO SCH ×2 (09:31→22:00)
[2022-06-05] MEDS: amLODIPine 10 MG TAB PO SCH (09:37)
[2022-06-05] MEDS: FAMOTIDINE 20 MG TAB PO SCH (09:37)
[2022-06-05] MEDS ORDERED: ASPIRIN EC 81 MG TAB PO SCH (10:00)
[2022-06-05] MEDS: hydrALAZINE 20 MG/1 ML INJ IV PRN ×2 (10:08→16:25)
[2022-06-05] MEDS: ASPIRIN EC 325 MG TAB PO SCH (10:08)
--- NOTE | 2022-06-05 10:30 | Electrocardiograph Report ---
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
[2022-06-05 11:40] LABS: Creatinine,Urine 100.7 mg/dL (0.1-20.0)
[2022-06-05] MEDS ORDERED: hydrALAZINE 25 MG TAB PO SCH (12:00)
--- NOTE | 2022-06-05 13:19 | Progress Note ---
Assessment and Plan Assessment and plan: This is a 61-year-old male with HTN and OK with transient atrial fibrillation admitted for acute CVA s/p tPA Neuro: Acute ischemic CVA s/p tPA -Neurology consulted, appreciate recommendations -Initial NIHSS 0 -9/7 NIHSS 2 per neurology -Initial CT head shows no acute abnormality, extensive chronic changes consistent with small vessel disease and lacunar infarcts -CTA head read as intracranial atherosclerotic changes in the distal right vertebral artery which may be highly stenotic or completely occluded just above the skull base with retrograde flow from the vertebrobasilar junction, basilar artery itself is is probably at atherosclerotic and appears to be occluded in i ts midpoint from the [place] collater[place], reconstitution distally with basilar arteries. -MRI brain with and without contrast able to be completed due to patient refusal -Echocardiogram shows LVEF 50 to 55%, no pericardial effusion, no PFO -Neurochecks per protocol -Target SBP 160-180/80-105 for 24 hours -Aspirin 325 daily -Lipid profile noted -Reorientation as needed -Maintain sleep-wake cycle -aspiration/seizure precautions -As needed analgesia -PT/ST/OT consulted, appreciate recommendations -Hemoglobin A1c 5.4 Cardiac: h/o HTN, OK, transient paroxysmal atrial fibrillation (with OK per patient) -Blood pressure monitoring per protocol -S/p nicardipine drip -Antihypertensive regimen: Norvasc, Metoprolol -Hydrochlorothiazide discontinued due to acute kidney injury -Echocardiogram shows LVEF 50 to 55%, no pericardial effusion, no PFO Respiratory: NAD -Supplemental oxygen as needed -SPO2 monitor per protocol GI: Obesity -PPI -Passed bedside swallow eval -Cardiac diet -BR: colace : Hypokalemia, Hypomagnesemia, Acute kidney injury likely secondary to vasomotor nephropathy -Monitor intake and output -Renally dose medications -Avoid nephrotoxic medications -Replete potassium and magnesium -DC HCTZ -Trend BMP ID: NAD -Monitor WBC and temperature curve Endo: NAD -Avoid hypoglycemia Heme: NAD -Trend CBC -Transfuse hemoglobin less than 7 -SCDs to BLE while in bed The high probability of a clinically significant, sudden or life threatening deterioration of the [neuro/CV] system(s) required my full and direct attention, intervention and personal management. The aggregate critical care time was [60] minutes. This time is in addition to time spent performing reported procedures but includes the following: [x] Data Review and interpretation [x] Patient assessment and monitoring of vital signs [x] Documentation [x] Medication orders and management Disposition Plan: transfer to floor Total Time Spent with Patient (Minutes): 60 History Interval history: This is a 61-year-old male with HTN and OK who presented to the hospital on 06/03 with complaints of right-sided numbness. 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 In the emergency department patient was noted to have a blood pressure of 229/132 and teleneurology was consulted who deemed the patient a candidate for tPA. Patient is an initial NIHSS per teleneurology was 0. Imaging included CT head which showed no acute hemorrhage. Teleneurology was contacted again as CTA head showed intracranial stenosis predominantly in the posterior circulation and teleneurology stated the areas of stenosis (distal right vertebral artery and mid basilar occlusion with reconstitution distally) does not represent areas of acute endovascular intervention and recommended post thrombolysis and 24- hour CT head to ensure no posttreatment hemorrhage, dual antiplatelet therapy to be considered for 3 months along with high intensity statin and outpatient follow-up with vascular neurology. Patient was admitted to the hospitalist service with consults to neurology and CCM for acute CVA s/p tPA Hospital course to date: 06/04: Patient will have MRI brain, repeat CT head at 2130. Passed bedside swallow evaluation. Nicardipine drip was titrated up but was started on p.o. antihypertensives with a goal of titrating nicardipine drip off. Potassium to be repleted. Patient does have expressive aphasia, right upper extremity pronation and drift with decreased sensation. Patient does complain of [id number] to right upper extremity. Hemoglobin A1c pending. 06/05: Repeat CT head with no acute intracranial hemorrhage, started on 325 aspirin per neurology recommendations. Patient does have improving symptoms to right upper extremity and bilateral lower extremities. Decreasing facial droop noted. Patient will be transferred to the floor. MRI was unable to be completed due to patient's refusing and and willingness to be medicated for it.. Hospitalist Physical - Constitutional Vitals: Temp Pulse Resp BP Pulse Ox 98 F 75 16 148/98 98 06/05/22 11:22 06/05/22 12:31 06/05/22 12:31 06/05/22 12:31 06/05/22 12:31 General appearance: Present: no acute distress, obese - EENT Eyes: Present: PERRL, EOM intact ENT: poor dentition - Neck Neck: Present: normal ROM - Respiratory Respiratory effort: normal Respiratory: bilateral: CTA, diminished - Cardiovascular Rhythm: regular Heart Sounds: Present: S1 & S2. Absent: systolic murmur, diastolic murmur - Extremities Extremities: no ischemia, pulses intact, pulses symmetrical, No edema, normal temperature, normal color Peripheral Pulses: within normal limits - Abdominal General gastrointestinal: soft, non-tender, non-distended, normal bowel sounds - Integumentary Integumentary: Present: warm, dry - Neurologic Neurologic: other (Expressive aphasia has improved, slight left facial droop, right upper extremity pronation much improved, bilateral lower extremity strengt h equal, right upper extremity strength 2/4. Equal sensation in all extremities) - Allied Health Allied health notes reviewed: nursing, PT, ST, OT, RT, social work HEART Score - HEART Score Troponin: Troponin T < 0.010 ng/mL (0.00-0.029) 06/03/22 20:35 Results - Labs CBC & Chem 7: 06/05/22 03:58 06/05/22 03:58 Labs: Laboratory Last Values WBC 6.4 K/mm3 (4.5-11.0) 06/05/22 03:58 RBC 4.66 M/mm3 (3.65-5.03) 06/05/22 03:58 Hgb 13.5 gm/dl (11.8-15.2) 06/05/22 03:58 Hct 41.4 % (35.5-45.6) 06/05/22 03:58 MCV 89 fl (84-94) 06/05/22 03:58 MCH 29 pg (28-32) 06/05/22 03:58 MCHC 33 % (32-34) 06/05/22 03:58 RDW 13.8 % (13.2-15.2) 06/05/22 03:58 Plt Count 165 K/mm3 (140-440) 06/05/22 03:58 Lymph % (Auto) 13.0 % (13.4-35.0) L 06/04/22 04:15 [place] % (Auto) 4.6 % (0.0-7.3) 06/04/22 04:15 Eos % (Auto) 0.4 % (0.0-4.3) 06/04/22 04:15 Baso % (Auto) 0.1 % (0.0-1.8) 06/04/22 04:15 Lymph # (Auto) 0.9 K/mm3 (1.2-5.4) L 06/04/22 04:15 [place] # (Auto) 0.3 K/mm3 (0.0-0.8) 06/04/22 04:15 Eos # (Auto) 0.0 K/mm3 (0.0-0.4) 06/04/22 04:15 Baso # (Auto) 0.0 K/mm3 (0.0-0.1) 06/04/22 04:15 Seg Neutrophils % 81.9 % (40.0-70.0) H 06/04/22 04:15 Seg Neutrophils # 5.5 K/mm3 (1.8-7.7) 06/04/22 04:15 PT 13.7 Sec. (12.2-14.9) 06/03/22 20:35 INR 0.95 (0.87-1.13) 06/03/22 20:35 APTT 32.0 Sec. (24.2-36.6) 06/03/22 20:35 Thrombin Time 17.7 Sec. (15.1-19.6) 06/03/22 20:35 Sodium 141 mmol/L (137-145) 06/05/22 03:58 Potassium 3.4 mmol/L (3.6-5.0) L 06/05/22 03:58 Chloride 101.2 mmol/L (98-107) 06/05/22 03:58 Carbon Dioxide 30 mmol/L (22-30) 06/05/22 03:58 Anion Gap 13 mmol/L 06/05/22 03:58 BUN 14 mg/dL (9-20) 06/05/22 03:58 Creatinine 1.7 mg/dL (0.8-1.3) H D 06/05/22 03:58 Estimated GFR 50 ml/min 06/05/22 03:58 BUN/Creatinine Ratio 8 % 06/05/22 03:58 Glucose 101 mg/dL (75-100) H 06/05/22 03:58 Hemoglobin A1c 5.4 % (4-6) 06/04/22 04:15 Calcium 8.5 mg/dL (8.4-10.2) 06/05/22 03:58 Phosphorus 5.10 mg/dL (2.5-4.5) H 06/05/22 03:58 Magnesium 1.60 mg/dL (1.7-2.3) L 06/05/22 03:58 Troponin T < 0.010 ng/mL (0.00-0.029) 06/03/22 20:35 Triglycerides 64 mg/dL (2-149) 06/04/22 04:15 Cholesterol 157 mg/dL (50-199) 06/04/22 04:15 LDL Cholesterol Direct 107 mg/dL (50-130) 06/04/22 04:15 HDL Cholesterol 43 mg/dL (40-59) 06/04/22 04:15 Cholesterol/HDL Ratio 3.65 % 06/04/22 04:15 Urine Color Straw (Yellow) 06/03/22 Unknown Urine Turbidity Clear (Clear) 06/03/22 Unknown Specific [place] (Man) 1.010 (1.003-1.030) 06/03/22 Unknown Ur Protein (Man) Negative mg/dL (Negative) 06/03/22 Unknown Ur Ketones (Man) Negative (Negative) 06/03/22 Unknown Ur Nitrite (Man) Negative (Negative) 06/03/22 Unknown Urine Bilirubin (Man) Negative (Negative) 06/03/22 Unknown Leukocyte Esterase (Man) Negative (Negative) 06/03/22 Unknown Urine WBC (Auto) < 1.0 /HPF (0.0-6.0) 06/03/22 Unknown Urine RBC (Auto) < 1.0 /HPF (0.0-6.0) 06/03/22 Unknown U Epithel Cells (Auto) < 1.0 /HPF (0-13.0) 06/03/22 Unknown Urine RBC (Manual) Negative (Negative) 06/03/22 Unknown Urine Osmolality 430 Mosm/kg 06/05/22 08:15 Urine Creatinine 100.7 mg/dL (0.1-20.0) H 06/05/22 08:15 Urine Sodium 116 mmol/L 06/05/22 08:15 Urine Urea Nitrogen 284 06/05/22 08:15 [place]/IV: Voiding Method Condom Catheter Active Medications - Current Medications Current Medications: Generic Name Dose Route Start Last Admin Trade Name Freq PRN Reason Stop Dose Admin Acetaminophen 650 mg 06/03/22 23:57 Acetaminophen 325 Mg Tab PO Q4H PRN Pain MILD(1-3)/Fever >100.5/[place] Albuterol 2.5 mg 06/03/22 23:57 Albuterol 2.5 Mg/3 Ml Nebu IH Q3HRT PRN Shortness Of Breath Amlodipine Besylate 10 mg 06/05/22 10:00 06/05/22 09:37 Amlodipine 10 Mg Tab PO 10 mg QDAY OWEN Administration Aspirin 325 mg 06/05/22 10:00 06/05/22 10:08 Aspirin Ec 325 Mg Tab PO 325 mg QDAY OWEN Administration Atorvastatin Calcium 80 mg 06/04/22 22:00 06/04/22 22:08 Atorvastatin 40 Mg Tab PO 80 mg QHS OWEN Administration Docusate Sodium 100 mg 06/04/22 14:00 06/05/22 09:31 Docusate Sodium 100 Mg Cap PO Not Given BID OWEN Famotidine 20 mg 06/04/22 10:00 06/05/22 09:37 Famotidine 20 Mg Tab PO 20 mg QDAY OWEN Administration Hydralazine HCl 10 mg 06/05/22 07:27 06/05/22 10:08 Hydralazine 20 Mg/1 Ml Inj IV 10 mg Q4HR PRN Administration Hypertension Hydralazine HCl 25 mg 06/05/22 12:00 06/05/22 11:55 Hydralazine 25 Mg Tab PO 25 mg Q8HR OWEN Administration Nicardipine HCl 50 mg/ Sodium 250 mls @ 25 mls/hr 06/03/22 22:00 06/04/22 12:00 Chloride IV 0 mg/hr TITR OWEN 0 mls/hr Titration Protocol 5 MG/HR Morphine Sulfate 2 mg 06/03/22 23:57 Morphine 2 Mg/1 Ml Inj IV Q4H PRN Pain, Moderate (4-6) Morphine Sulfate 4 mg 06/03/22 23:57 Morphine 4 Mg/1 Ml Inj IV Q4H PRN Pain , Severe (7-10) Ondansetron HCl 4 mg 06/03/22 23:57 Ondansetron 4 Mg/2 Ml Inj IV Q8H PRN Nausea And Vomiting Sodium Chloride 10 ml 06/04/22 10:00 06/05/22 09:35 Sodium Chloride 0.9% 10 Ml Flush Syringe IV 10 ml BID OWEN Administration Sodium Chloride 10 ml 06/03/22 23:57 Sodium Chloride 0.9% 10 Ml Flush Syringe IV PRN PRN LINE FLUSH
[2022-06-05] MEDS ORDERED: ASPIRIN 81 MG TAB CHEW PO SCH (15:06)
[2022-06-05] MEDS: METOPROLOL TARTRATE 50 MG TAB PO SCH (21:59)
[2022-06-06] MEDS: hydrALAZINE 20 MG/1 ML INJ IV PRN ×2 (00:57→11:57)
[2022-06-06 06:08] LABS: BUN/Creatinine Ratio 14; Blood Urea Nitrogen 20 mg/dL (9-20); Calcium 8.7 mg/dL (8.4-10.2); Hemolysis Index 8
--- NOTE | 2022-06-06 08:08 | Discharge Summary ---
Providers - Providers Date of Admission: 06/03/22 23:58 Date of discharge: 06/06/22 Attending physician: LENORE PHIPPS MD 06/03/22 23:57 Consult to Physician [CONS] Routine Comment: Consulting Provider: KAVYA NORMAN Physician Instructions: Reason For Exam: cva 06/03/22 23:58 Occupational Therapy Evaluate and Treat [CONS] Routine Comment: Reason For Exam: Neuro deficits Physical Therapy Evaluation and Treat [CONS] Routine Comment: Reason For Exam: Neuro deficits 06/04/22 11:18 Speech Therapy Evaluation and Treat [CONS] Routine Reason For Exam: cva, aphasia Primary care physician: CHEKO MIRANDA Hospitalization Reason for admission: right sided numbness Condition: Serious Hospital course: History Interval history: This is a 61-year-old male with HTN and OK who presented to the hospital on 06/03 with complaints of right-sided numbness. 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 In the emergency department patient was noted to have a blood pressure of 229/132 and teleneurology was consulted who deemed the patient a candidate for tPA. Patient is an initial NIHSS per teleneurology was 0. Imaging included CT head which showed no acute hemorrhage. Teleneurology was contacted again as CTA head showed intracranial stenosis predominantly in the posterior circulation and teleneurology stated the areas of stenosis (distal right vertebral artery and mid basilar occlusion with reconstitution distally) does not represent areas of acute endovascular intervention and recommended post thrombolysis and 24-h our CT head to ensure no posttreatment hemorrhage, dual antiplatelet therapy to be considered for 3 months along with high intensity statin and outpatient follow-up with vascular neurology. Patient was admitted to the hospitalist service with consults to neurology and [facility] for acute CVA s/p tPA Hospital course to date: 06/04: Patient will have MRI brain, repeat CT head at 2130. Passed bedside swallow evaluation. Nicardipine drip was titrated up but was started on p.o. antihypertensives with a goal of titrating nicardipine drip off. Potassium to be repleted. Patient does have expressive aphasia, right upper extremity pronation and drift with decreased sensation. Patient does complain of [id number] to right upper extremity. Hemoglobin A1c pending. 06/05: Repeat CT head with no acute intracranial hemorrhage, started on 325 aspirin per neurology recommendations. Patient does have improving symptoms to right upper extremity and bilateral lower extremities. Decreasing facial droop noted. Patient will be transferred to the floor. MRI was unable to be completed due to patient's refusing and and willingness to be medicated for it. 06/06: patient declined MRI brain study. No needs per PT evaluation. Patient will be discharge home today. Will rx: aspirin 325 mg po daily, atorvastatin 80 mg po qhs, amlodipine 10 mg po daily, metoprolol 50 mg po bid. Assessment and plan: This is a 61-year-old male with HTN and OK with transient atrial fibrillation admitted for acute CVA s/p tPA Neuro: Acute ischemic CVA s/p tPA -Neurology consulted, appreciate recommendations -Initial NIHSS 0 -06/04 NIHSS 2 per neurology -Initial CT head shows no acute abnormality, extensive chronic changes consistent with small vessel disease and lacunar infarcts -CTA head read as intracranial atherosclerotic changes in the distal right vertebral artery which may be highly stenotic or completely occluded just above the skull base with retrograde flow from the vertebrobasilar junction, basilar artery itself is is probably at atherosclerotic and appears to be occluded in its midpoint from the [place] coll[place], reconstitution distally with basilar arteries. -MRI brain with and without contrast able to be completed due to patient refusal -Echocardiogram shows LVEF 50 to 55%, no pericardial effusion, no PFO -Neurochecks per protocol -Target SBP 160-180/80-105 for 24 hours -Aspirin 325 daily -Lipid profile noted -Reorientation as needed -Maintain sleep-wake cycle -aspiration/seizure precautions -As needed analgesia -PT/ST/OT consulted, appreciate recommendations -Hemoglobin A1c 5.4 Cardiac: h/o HTN, OK, transient paroxysmal atrial fibrillation (with OK per patient) -Blood pressure monitoring per protocol -S/p nicardipine drip -Antihypertensive regimen: Norvasc, Metoprolol -Hydrochlorothiazide discontinued due to acute kidney injury -Echocardiogram shows LVEF 50 to 55%, no pericardial effusion, no PFO Respiratory: NAD -Supplemental oxygen as needed -SPO2 monitor per protocol GI: Obesity -PPI -Passed bedside swallow eval -Cardiac diet -BR: colace : Hypokalemia, Hypomagnesemia, Acute kidney injury likely secondary to vasomotor nephropathy -Monitor intake and output -Renally dose medications -Avoid nephrotoxic medications -Replete potassium and magnesium -DC HCTZ -Trend BMP ID: NAD -Monitor WBC and temperature curve Endo: NAD -Avoid hypoglycemia Heme: NAD -Trend CBC -Transfuse hemoglobin less than 7 -SCDs to BLE while in bed Disposition: HOME / SELF CARE / HOMELESS Final Discharge Diagnosis (Prints w/discharge instructions): acute ischemic cva, Hypertnesion, paroxysmal atrial fibrillation, hypokalemia, hypomagnesemia, acute kidney injury due to vasomotor nephropathy Time spent for discharge: 35 Core Measure Documentation - Palliative Care Palliative Care/ Comfort Measures: Not Applicable - Core Measures Any of the following diagnoses?: stroke - Stroke Discharge Requirements Statin for LDL = or >70 mg/dl on DC: Yes Anticoag for atrial fib/atrial flutter: Not Applicable Antithrombotic for ischemic stroke: Yes Exam - Constitutional Vitals: Temp Pulse Resp BP Pulse Ox 97.9 F 68 18 140/91 98 06/06/22 03:53 06/06/22 03:53 06/06/22 04:47 06/06/22 03:53 06/06/22 03:53 Plan Follow up with: CHEKO MIRANDA MD [Primary Care Provider] - 3-5 Days
[2022-06-06] MEDS: METOPROLOL TARTRATE 50 MG TAB PO SCH (11:35)
[2022-06-06] MEDS: FAMOTIDINE 20 MG TAB PO SCH (11:35)
[2022-06-06] MEDS: DOCUSATE SODIUM 100 MG CAP PO SCH (11:35)
[2022-06-06] MEDS: ASPIRIN EC 325 MG TAB PO SCH (11:35)
[2022-06-06] MEDS: amLODIPine 10 MG TAB PO SCH (11:35)
[2022-06-06 16:48] VITALS: BP 128/78
== END 2022-06-06 17:21 | disposition home or self-care (01) | DRG 61 ==
LOC: ED 19:03 → CC1 23:58 → 4A 06-05 14:06
PROVIDERS: ADMIT Hospitalist; ATTEND Internal Medicine
DX: I63.9 Cerebral infarction, unspecified (principal); N17.0 Acute kidney failure with tubular necrosis; I48.0 Paroxysmal atrial fibrillation; I10 Essential (primary) hypertension; E66.9 Obesity, unspecified; Z68.29 Body mass index [BMI] 29.0-29.9, adult; E87.6 Hypokalemia; E83.42 Hypomagnesemia; Z82.49 Family history of ischemic heart disease and other diseases of the circulatory system
CPT/HCPCS: 36415; 70450; 70496; 70498; 80048; 80061; 81001; 82570; 83036; 83735; 83935; 84100; 84300; 84484; 84520; 85025; 85027; 85610; 85670; 85730; 93005; 93306; 94640; G0378; J3490; C8929; J0360; J2997; J3475; J7050; J7120; Q9967